=== PATIENT | male | born 1935 | race Caucasian/White ===

== ENCOUNTER 2017-10-28 17:42 | Observation (INO) ==
--- NOTE | 2017-10-28 18:45 | ED ---
HPI General Chief Complaint: Chest Pain Stated Complaint: chest pain Time Seen by Provider: 10/28/17 18:28 Source: patient Mode of arrival: ambulatory Limitations: no limitations History of Present Illness HPI narrative: 82-year-old male complains of chest pain. Patient states that he has sharp stabbing pain started on the right anterior chest with radiation to the right shoulder. Patient states that the pain started about 630 last night. Patient took aspirin 81 mg 6 pills last night. Patient took aspirin 81 mg 4 tablets today prior to arrival. Patient states that the pain is worse with right arm movement. Patient denies any shortness of breath. Patient denies any palpitation or tachycardia. Patient has history ID in 2000 2001. Patient status post stent placement to the stents in 2000 and 1 standing thousand 2. Patient is on aspirin 81 mg at home. Patient also has history of diabetes and hyperlipidemia. Patient is a non-smoker. On a scale of 1-10 the pain is a 7. Patient denies any coughing congestion fever chills. Patient denies any injury to the right side the chest or the shoulder. MD complaint: chest pain Complete Quality Measures for STEMI Alert Patients STEMI Alert: No Onset (ago): hour(s) Duration: constant Onset: during rest Pain location: right chest Severity: moderate Severity scale (1-10): 7 Quality: sharp Pain radiation: RUE Relieving factors: nothing and remaining still Exacerbating factors: movement Treatments prior to arrival chest pain: aspirin Related Data Home Medications Medication Instructions Recorded Confirmed atorvastatin [Lipitor] 10 mg PO DAILY 10/28/17 10/28/17 metformin [Glucophage] 1,000 mg PO BID 10/28/17 10/28/17 Allergies Allergy/AdvReac Type Severity Reaction Status Date / Time No Known Allergies Allergy Unverified 10/28/17 18:46 Review of Systems Except as stated in HPI: all other systems reviewed are negative PMFSH History History Provided By: Patient Medical History Medical History Diabetes (Acute) High cholesterol (Acute) Surgical History Surgical History History of heart artery stent (Acute) Social History Social History Smoking Status: Never smoker How Often Do You Have a Drink Containing Alcohol: 2 to 4 times a month Recent Travel in [facility] within the Last 8 Weeks: No Recent Out of Country Travel within the Last 8 Weeks: No Exam Narrative Exam Narrative: GENERAL: Well-nourished, well-developed patient. SKIN: Focused skin assessment warm/dry. HEAD: Normocephalic. EYES: No scleral icterus. No injection or drainage. NECK: Supple, trachea midline. No JVD or lymphadenopathy. CARDIOVASCULAR: Regular rate and rhythm without murmurs, gallops, or rubs. RESPIRATORY: Breath sounds equal bilaterally. No accessory muscle use. GASTROINTESTINAL: Abdomen soft, non-tender, nondistended. MUSCULOSKELETAL: No cyanosis, or edema. BACK: Nontender without obvious deformity. No CVA tenderness. Neurologic exam normal. Course Initial Documented Vital Signs Temperature 98.4 F 10/28/17 17:53 Pulse Rate 75 10/28/17 17:53 Respiratory Rate 18 10/28/17 17:53 Blood Pressure 159/70 H 10/28/17 17:53 Pulse Oximetry 99 10/28/17 17:53 Last Documented Vital Signs Temperature 97.8 F 10/28/17 18:20 Pulse Rate 50 L 10/28/17 18:20 Respiratory Rate 18 10/28/17 18:20 Blood Pressure 190/96 H 10/28/17 18:20 Pulse Oximetry 99 10/28/17 18:49 Sign Out Sign Out Data: Patient Sign Out occurred on 10/28/17 at 19:38. Patient's care was discussed, and care was transferred from Kehinde Stevenson to Karmen Baumann MD. Sign Out Comment: Check EKG x-ray blood test. Last updated by Kehinde Stevenson MD at 10/28/17 19:15 Medical Decision Making MDM Narrative Medical decision making narrative: 82-year-old male with right-sided chest pain. @ 7:40 accepted in transfer of care Follow-up of complaint of chest pain EKG shows no acute ST elevation or injury pattern white count is in normal range mild anemia renal function is grossly within normal limits cardiac enzymes are pending chest x-ray reported as mild right base atelectasis with d-dimer of 0.92 mildly elevated --pulmonary CT pending In 19:20 CT pulmonary angiogram is negative for PE; troponin I is less than 0.02 ; CK total is elevated at 446 with an MB of 13 however MB percent is 2.9% not elevated; patient is pain-free; patient is aware of lab results and recommendation for observation admission to chest pain center per protocol and is agreeable with this plan. Differential Diagnosis Differential Diagnosis: Differential diagnosis including musculoskeletal, PE, pneumothorax, angina, ID. Medical Records Medical records reviewed: Yes I reviewed the patient's medical records. Lab Data Lab results reviewed: Yes I reviewed the patient's lab results. Result diagrams: 10/28/17 18:30 10/28/17 18:30 Lab Results 10/28/17 10/28/17 10/28/17 Range/Units 18:30 18:30 18:30 WBC 6.2 (4.0-11.0) th/mm3 RBC 3.62 L (4.50-5.90) mil/mm3 Hgb 11.2 L (13.0-17.0) gm/dL Hct 32.3 L (39.0-51.0) % MCV 89.2 (80.0-100.0) fL MCH 30.8 (27.0-34.0) pg MCHC 34.6 (32.0-36.0) % RDW 13.1 (11.6-17.2) % Plt Count 211 (150-450) th/mm3 MPV 7.3 (7.0-11.0) fL Neut % (Auto) 62.2 (16.0-70.0) % Lymph % (Auto) 25.2 (9.0-44.0) % [place] % (Auto) 10.1 H (0.0-8.0) % Eos % (Auto) 1.8 (0.0-4.0) % Baso % (Auto) 0.7 (0.0-2.0) % Neut # (Auto) 3.8 (1.8-7.7) th/mm3 Lymph # (Auto) 1.6 (1.0-4.8) th/mm3 [place] # (Auto) 0.6 (0.0-0.9) th/mm3 Eos # (Auto) 0.1 (0.0-0.4) th/mm3 Baso # (Auto) 0.0 (0.0-0.2) th/mm3 WBC Differential . Differential Comment Auto diff final PT 11.5 (9.8-11.6) sec INR 1.1 Ratio APTT 23.6 L (24.3-30.1) sec D-Dimer Quant (PE/DVT) 0.92 H (0.00-0.50) mg/L FEU Sodium 131 L (136-145) meq/L Potassium 4.3 (3.5-5.1) meq/L Chloride 96 L (98-107) meq/L Carbon Dioxide 24.7 (21.0-32.0) meq/L Anion Gap 10 (5-15) meq/L BUN 14 (7-18) mg/dL Creatinine 1.14 (0.60-1.30) mg/dL Estimated GFR 61 L (>89) mL/min Random Glucose 96 (74-106) mg/dL Calcium 9.2 (8.5-10.1) mg/dL Magnesium 1.9 (1.5-2.5) mg/dL Total Bilirubin 1.4 H (0.2-1.0) mg/dL AST 25 (15-37) U/L ALT 27 (12-78) U/L Alkaline Phosphatase 86 (45-117) U/L Total Creatine Kinase 446 H (39-308) U/L CK-MB (CK-2) 13.0 H (0.5-3.6) ng/mL CK-MB (CK-2) % 2.9 (0.0-4.0) % Troponin I Less than 0.02 L (0.02-0.05) ng/mL B-Natriuretic Peptide (0-100) pg/mL Total Protein 7.1 (6.4-8.2) g/dL Albumin 3.6 (3.4-5.0) g/dL 10/28/17 Range/Units 18:30 WBC (4.0-11.0) th/mm3 RBC (4.50-5.90) mil/mm3 Hgb (13.0-17.0) gm/dL Hct (39.0-51.0) % MCV (80.0-100.0) fL MCH (27.0-34.0) pg MCHC (32.0-36.0) % RDW (11.6-17.2) % Plt Count (150-450) th/mm3 MPV (7.0-11.0) fL Neut % (Auto) (16.0-70.0) % Lymph % (Auto) (9.0-44.0) % [place] % (Auto) (0.0-8.0) % Eos % (Auto) (0.0-4.0) % Baso % (Auto) (0.0-2.0) % Neut # (Auto) (1.8-7.7) th/mm3 Lymph # (Auto) (1.0-4.8) th/mm3 [place] # (Auto) (0.0-0.9) th/mm3 Eos # (Auto) (0.0-0.4) th/mm3 Baso # (Auto) (0.0-0.2) th/mm3 WBC Differential Differential Comment PT (9.8-11.6) sec INR Ratio APTT (24.3-30.1) sec D-Dimer Quant (PE/DVT) (0.00-0.50) mg/L FEU Sodium (136-145) meq/L Potassium (3.5-5.1) meq/L Chloride (98-107) meq/L Carbon Dioxide (21.0-32.0) meq/L Anion Gap (5-15) meq/L BUN (7-18) mg/dL Creatinine (0.60-1.30) mg/dL Estimated GFR (>89) mL/min Random Glucose (74-106) mg/dL Calcium (8.5-10.1) mg/dL Magnesium (1.5-2.5) mg/dL Total Bilirubin (0.2-1.0) mg/dL AST (15-37) U/L ALT (12-78) U/L Alkaline Phosphatase (45-117) U/L Total Creatine Kinase (39-308) U/L CK-MB (CK-2) (0.5-3.6) ng/mL CK-MB (CK-2) % (0.0-4.0) % Troponin I (0.02-0.05) ng/mL B-Natriuretic Peptide 185 H (0-100) pg/mL Total Protein (6.4-8.2) g/dL Albumin (3.4-5.0) g/dL Imaging Data Radiologist's impression: ITS Impressions Chest X-Ray 10/28/17 18:28 CONCLUSION: Mild right base atelectasis. Chest CTA 10/28/17 18:37 CONCLUSION: 1. No pulmonary embolus or other acute cardiopulmonary disease demonstrated. 2. Left ventricular enlargement. 3. Coronary artery calcification. ECG Data Interpretation: Sinus bradycardia rate 55 with first-degree AV block and sinus arrhythmia no acute ST elevation or injury pattern change noted Discharge Plan Discharge Disposition Patient Disposition: 30 Still Patient Discharge Condition Condition: Stable Discharge Details Diagnosis: Chest pain Physicians Team ED Provider: Karmen Baumann Primary Care Provider: Fili Mora Rxs /Orders / Referrals /Forms Prescriptions: No Action atorvastatin [Lipitor] 10 mg Tablet 10 mg PO DAILY RF: 0 metformin [Glucophage] 1,000 mg Tablet 1,000 mg PO BID RF: 0 Discharge Instructions Patient Printed Instructions: Chest Pain (ED) Status ED Status: With Doctor
[2017-10-28 19:03] LABS: Baso % (Auto) 0.7 % (0.0-2.0); Eos # (Auto) 0.1 th/mm3 (0.0-0.4); Eos % (Auto) 1.8 % (0.0-4.0); Hematocrit 32.3 % (39.0-51.0); Hemoglobin 11.2 gm/dL (13.0-17.0); Lymph # (Auto) 1.6 th/mm3 (1.0-4.8); Lymph % (Auto) 25.2 % (9.0-44.0); Mean Corpuscular HGB Conc 34.6 % (32.0-36.0); Mean Corpuscular Hemoglobin 30.8 pg (27.0-34.0); Mean Corpuscular Volume 89.2 fL (80.0-100.0); Mean Platelet Volume 7.3 fL (7.0-11.0); Mono # (Auto) 0.6 th/mm3 (0.0-0.9); Mono % (Auto) 10.1 % (0.0-8.0); Neut # (Auto) 3.8 th/mm3 (1.8-7.7); Neut % (Auto) 62.2 % (16.0-70.0); Platelet Count 211 th/mm3 (150-450); Red Blood Count 3.62 mil/mm3 (4.50-5.90); Red Cell Distribution Width 13.1 % (11.6-17.2); White Blood Count 6.2 th/mm3 (4.0-11.0)
[2017-10-28 19:11] LABS: Albumin 3.6 g/dL (3.4-5.0); Anion Gap 10 meq/L (5-15); Aspartate Aminotransferase 25 U/L (15-37); Blood Urea Nitrogen 14 mg/dL (7-18); Calcium 9.2 mg/dL (8.5-10.1); Carbon Dioxide 24.7 meq/L (21.0-32.0); Chloride 96 meq/L (98-107); Glomerular Filtration Rate 61 mL/min (>89); Glucose,Random 96 mg/dL (74-106); Magnesium 1.9 mg/dL (1.5-2.5); Potassium 4.3 meq/L (3.5-5.1); Sodium 131 meq/L (136-145)
[2017-10-28 19:12] LABS: Alanine Aminotransferase 27 U/L (12-78)
[2017-10-28 19:15] LABS: Activated Partial Thrombo Time 23.6 sec (24.3-30.1); INR 1.1 Ratio; Prothrombin Time 11.5 sec (9.8-11.6)
[2017-10-28 19:16] LABS: Alkaline Phosphatase 86 U/L (45-117); Creatine Kinase 446 U/L (39-308); Total Protein 7.1 g/dL (6.4-8.2)
[2017-10-28 19:18] LABS: D-Dimer 0.92 mg/L FEU (0.00-0.50)
--- NOTE | 2017-10-28 19:26 | XR ---
EXAM DATE: 10/28/2017 7:07 PM EDT AGE/SEX: 82 years / Male INDICATIONS: Chest pain. CLINICAL DATA: This is the patient's initial encounter. Patient reports that signs and symptoms have been present for 3 days and indicates a pain score of 9/10. MEDICAL/SURGICAL HISTORY: Diabetes mellitus type II. Hypercholesterolemia. Coronary artery beatrice nt. COMPARISON: POI, XR CHEST PA AND LAT, 08/22/2014. . FINDINGS: There is trace atelectasis at the right base. No pleural effusion seen. No pneumothorax. Heart size stable, within normal limits. CONCLUSION: Mild right base atelectasis. Electronically signed by: Waqar Owen MD 10/28/2017 7:25 PM EDT
[2017-10-28 19:28] LABS: CKMB Percent 2.9 % (0.0-4.0)
--- NOTE | 2017-10-28 20:08 | CT ---
EXAM DATE: 10/28/2017 7:52 PM EDT AGE/SEX: 82 years / Male INDICATIONS: Chest pain since last night. Right arm pain that radiates to chest. CLINICAL DATA: This is the patient's initial encounter. Patient reports that signs and symptoms have been present for 2 days and indicates a pain score of 6/10. MEDICAL/SURGICAL HISTORY: Diabetes. Hypercholesterolemia. None. RADIATION DOSE: 17.89 CTDI (mGy) COMPARISON: No prior exams available for comparison. TECHNIQUE: Volumetric scanning was performed using a multi-row detector CT scanner during bolus infu juan r of 50 ml Omnipaque 350 (iohexol) nonionic water-soluble contrast as a single exam dose. The scarlet a was post processed with a variety of visualization algorithms including full volume maximum intensi ty projection and sliding thin slab reformation. Using automated exposure control and adjustment of the mA and/or kV according to patient size, radiation dose was kept as low as reasonably achievable t o obtain optimal diagnostic quality images. DICOM format image data is available electronically for review and comparison. FINDINGS: Pulmonary Arteries: No filling defects are seen in the pulmonary arteries out to the subsegmental ve ssels. The left and right pulmonary arteries are normal in diameter. Lung: No infiltrates seen. Effusion: None. Mediastinum: No evidence of mediastinal or hilar adenopathy. There is mild left ventricular enlargem ent. Coronary artery calcification present. There is atherosclerosis of the thoracic aorta. Other: The axillae are unremarkable. CONCLUSION: 1. No pulmonary embolus or other acute cardiopulmonary disease demonstrated. 2. Left ventricular enlargement. 3. Coronary artery calcification. Electronically signed by: Waqar Owen MD 10/28/2017 8:07 PM EDT
[2017-10-28] MEDS ORDERED: Acetaminophen 500 MG Tablet PO PRN (21:16)
--- NOTE | 2017-10-28 21:16 | ECG ---
Date Performed: 10/28/2017 Time Performed: 18:12:40 PTAGE: 82 years EKG: ATRIAL FIBRILLATION WITH SLOW VENTRICULAR RESPONSE ABNORMAL RHYTHM ECG Compared to prior EK G rate has increased. I cannot accurately compare rhythm due to prior baseline artifact. DOCTOR: Narayan Arzola Interpretating Date/Time 10/28/2017 21:15:32
[2017-10-28 23:01] LABS: Creatine Kinase 482 U/L (39-308)
[2017-10-28 23:14] LABS: CKMB Percent 2.7 % (0.0-4.0); Creatine Kinase MB 13.1 ng/mL (0.5-3.6)
[2017-10-29 01:25] LABS: Creatine Kinase 405 U/L (39-308)
[2017-10-29 01:38] LABS: CKMB Percent 2.6 % (0.0-4.0); Creatine Kinase MB 10.7 ng/mL (0.5-3.6)
--- NOTE | 2017-10-29 08:47 | ECG ---
Date Performed: 10/29/2017 Time Performed: 00:26:50 PTAGE: 82 years EKG: ATRIAL FIBRILLATION WITH SLOW VENTRICULAR RESPONSE ABNORMAL ECG PREVIOUS TRACING : 10/28/2017 18.12 Since previous tracing, no significant change noted DOCTOR: Lewis Aaron Interpretating Date/Time 10/29/2017 08:46:22
--- NOTE | 2017-10-29 08:48 | ECG ---
Date Performed: 10/28/2017 Time Performed: 22:39:30 PTAGE: 82 years EKG: ATRIAL FIBRILLATION WITH SLOW VENTRICULAR RESPONSE ABNORMAL RHYTHM ECG NO PREVIOUS TRACING DOCTOR: Lewis Aaron Interpretating Date/Time 10/29/2017 08:46:36
[2017-10-29] MEDS: Aspirin 325 MG Tablet PO SCH (08:55)
--- NOTE | 2017-10-29 09:20 | P.HPCA ---
History of Present Illness Primary Care Physician: Fili Mora MD Chief Complaint: Chest pain History of Present Illness: This is a 82-year-old male with history of CAD with stents, hyperlipidemia, diabetes that presents to ED with complaint of right-sided sharp chest discomfort that has been intermittent for the last 2 days. Seems he brought on by movement. More so he moves his right arm the discomfort will recur. Describes it as severe. Denied associated shortness of breath, nausea, or diaphoresis. States the discomfort is not similar to when eating stenting in the past which after reviewing records that was in 2003. 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 Denies ever being told he has atrial fibrillation. Denies episodes of feeling dizzy or weak and denies episodes of passing out or nearly passing out. Patient is lifetime non-smoker. There is family history of CAD. Patient has had cardiac catheterizations with stenting, most recently cardiac catheterization in 2003 with a stent to the LAD. - Diagnosis (1) Chest pain (2) CAD (coronary artery disease) (3) History of heart artery stent (4) Hyperlipidemia (5) Diabetes Inpatient Certification: I certify that the inpatient services were ordered in accordance with Medicare regulations governing the order. This includes certification that hospital inpatient services are reasonable and necessary and in the case of services not specified as inpatient-only under 42 CFR 419.22(n), that they are appropriately provided as inpatient services in accordance to with the 2-midnight benchmark under 43 CFR 412.3(e) Review of Systems General: Patient denies fevers, chills, and recent travel. HEENT: Patient denies headache, sore throat, difficulty swallowing. Cardiovascular: Has the chest discomfort as mentioned above. Denies sensation of heart beating rapidly or irregularly. No syncope. Respiratory: Denies shortness of breath or inspirational chest discomfort. Denies coughing wheezing or hemoptysis. GI: Patient denies nausea, vomiting, diarrhea, abdominal pain, bloody stools. Musculoskeletal: Patient denies joint pain or edema. Denies calf pain or edema. Neurovascular: Patient denies numbness, tingling, weakness in extremities. Denies headache. Endocrine: Denies polyuria and polydipsia. Hematologic: Denies easy bruising. Skin: Denies rash or itching. PMFSH - History History Provided By: Patient - Medical History Medical History: Medical History (Last Reviewed 10/29/17 @ 09:02 by YVETTE Iqbal) Diabetes (Acute) High cholesterol (Acute) - Surgical History Surgical History: Surgical History (Last Updated 10/29/17 @ 09:01 by YVETTE Iqbal) History of heart artery stent (Acute) - Tobacco History Second Hand Smoke Exposure: No Smoking Status: Never smoker - Alcohol History How Often Do You Have a Drink Containing Alcohol: 2 to 4 times a month - Substance Use History Substance History: No History of Abuse - Travel History Recent Travel in the [place] Within the Last 8 Weeks: No Recent Travel Out of the Country Within the Last 8 Weeks: No - Immunization History Tetanus Immunization: >5 Years Hx Influenza Vaccine This Season: Yes Medications and Allergies Active Medications: Active Medications Acetaminophen (Tylenol) 500 mg PO Q4H PRN PRN Reason: HEADACHE Aspirin (Aspirin) 325 mg PO DAILY [facility] Last Admin: 10/29/17 08:55 Dose: 325 mg Atorvastatin Calcium (Lipitor) 10 mg PO DAILY [facility] Insulin Human Regular (Novolin R Supplemental Scale) 0 units SQ ACHS [facility]; Protocol Nitroglycerin (Nitrostat Sl) 0.4 mg SL Q5M PRN PRN Reason: CHEST PAIN Sodium Chloride (Ns Flush) 2 ml IV.FLUSH UNSCH PRN PRN Reason: FLUSH AFTER USING IV ACCESS Sodium Chloride (Ns Flush) 2 ml IV.FLUSH UNSCH PRN PRN Reason: FLUSH AFTER USING IV ACCESS Sodium Chloride (Ns Flush) 2 ml IV.FLUSH BID [facility] Last Admin: 10/29/17 08:55 Dose: 2 ml Sodium Chloride (Ns Flush) 2 ml IV.FLUSH PRN PRN PRN Reason: FLUSH AFTER USING IV ACCESS Allergies Allergy/AdvReac Type Severity Reaction Status Date / Time No Known Allergies Allergy Unverified 10/28/17 18:46 Home Medications Medication Instructions Recorded Confirmed Type atorvastatin [Lipitor] 10 mg PO DAILY 10/28/17 10/28/17 History metformin [Glucophage] 1,000 mg PO BID 10/28/17 10/28/17 History Exam Vital signs: Vital Signs 10/28/17 17:53 10/28/17 18:20 10/28/17 18:49 Temperature 98.4 F 97.8 F Pulse Rate 75 50 L Respiratory Rate 18 18 Blood Pressure 159/70 H 190/96 H Pulse Oximetry 99 99 99 10/28/17 21:23 10/29/17 00:00 10/29/17 00:05 Temperature 97.6 F 97.5 F L Pulse Rate 47 L 83 Respiratory Rate 16 17 Blood Pressure 165/82 H 195/86 H 180/81 H Pulse Oximetry 100 96 10/29/17 00:49 10/29/17 01:02 10/29/17 01:05 Temperature Pulse Rate 63 52 L 44 L Respiratory Rate Blood Pressure Pulse Oximetry 10/29/17 02:09 10/29/17 03:14 10/29/17 04:00 Temperature 97.7 F Pulse Rate 36 L 35 L Respiratory Rate 18 Blood Pressure 179/82 H 161/70 H Pulse Oximetry 100 10/29/17 07:30 Temperature 97.5 F L Pulse Rate 45 L Respiratory Rate 12 Blood Pressure 186/83 H Pulse Oximetry 98 Intake & Output 10/28/17 10/29/17 10/29/17 18:59 06:59 18:59 Intake Total 480 / 480 Balance 480 / 480 Weight 74.843 kg Intake: Oral 480 / 480 Other: # Voids 3 Date of Last Bowel Movement 10/27/17 Narrative: GENERAL: This is a well-nourished, well-developed patient, in no apparent distress. Patient speaks in clear complete sentences. Patient is pleasant. HEENT: Head is atraumatic and normocephalic. Neck is supple without lymphadenopathy and trachea is midline. No JVD or carotid bruits. CARDIOVASCULAR: Irregularly irregular rate and rhythm with rate in the 40s without murmurs, gallops, or rubs. RESPIRATORY: Clear to auscultation. Breath sounds equal bilaterally. No wheezes , rales, or rhonchi. Chest wall is nontender. No use of accessory muscles. GASTROINTESTINAL: Abdomen is nontender, nondistended. Abdomen soft. No obvious pulsatile mass or bruit. No CVA tenderness. Strong femoral pulses bilaterally. Normal bowel sounds in all quadrants. MUSCULOSKELETAL: Patient is moving upper and lower extremities freely. No calf tenderness or edema, no Homans sign. Strong pulses in upper and lower extremities. NEUROLOGICAL: Patient is alert and oriented. Cranial nerves 2-12 are grossly intact. No focal deficits and speech is clear. SKIN: No rash and turgor is normal. Results 10/28/17 18:30 10/28/17 18:30 Cardiac Enzymes 10/28/17 10/28/17 10/28/17 Range/Units 18:30 18:30 18:30 AST 25 (15-37) U/L CK-MB (CK-2) 13.0 H (0.5-3.6) ng/mL Troponin I Less than 0.02 L (0.02-0.05) ng/mL B-Natriuretic Peptide 185 H Cancelled (0-100) pg/mL 10/28/17 10/29/17 Range/Units 22:05 00:50 AST (15-37) U/L CK-MB (CK-2) 13.1 H 10.7 H (0.5-3.6) ng/mL Troponin I Less than 0.02 L Less than 0.02 L (0.02-0.05) ng/mL B-Natriuretic Peptide (0-100) pg/mL Coagulation 10/28/17 10/28/17 10/28/17 Range/Units 18:30 18:30 18:30 PT 11.5 (9.8-11.6) sec APTT 23.6 L (24.3-30.1) sec B-Natriuretic Peptide 185 H Cancelled (0-100) pg/mL CBC 10/28/17 Range/Units 18:30 WBC 6.2 (4.0-11.0) th/mm3 RBC 3.62 L (4.50-5.90) mil/mm3 Hgb 11.2 L (13.0-17.0) gm/dL Hct 32.3 L (39.0-51.0) % Plt Count 211 (150-450) th/mm3 Neut # (Auto) 3.8 (1.8-7.7) th/mm3 Lymph # (Auto) 1.6 (1.0-4.8) th/mm3 [place] # (Auto) 0.6 (0.0-0.9) th/mm3 Eos # (Auto) 0.1 (0.0-0.4) th/mm3 Baso # (Auto) 0.0 (0.0-0.2) th/mm3 Comprehensive Metabolic Panel 07/10/18 Range/Units 18:30 Sodium 131 L (136-145) meq/L Potassium 4.3 (3.5-5.1) meq/L Chloride 96 L (98-107) meq/L Carbon Dioxide 24.7 (21.0-32.0) meq/L BUN 14 (7-18) mg/dL Creatinine 1.14 (0.60-1.30) mg/dL Calcium 9.2 (8.5-10.1) mg/dL AST 25 (15-37) U/L ALT 27 (12-78) U/L Alkaline Phosphatase 86 (45-117) U/L Total Protein 7.1 (6.4-8.2) g/dL Albumin 3.6 (3.4-5.0) g/dL Intake and Output 10/28/17 10/29/17 10/29/17 22:59 06:59 14:59 Intake Total 480 / 480 Balance 480 / 480 Intake: Oral 480 / 480 Other: # Voids 3 Date of Last Bowel Movement 10/27/17 Weight 74.843 kg EKG interpretations - EKG EKG shows: atrial fibrillation (EKGs have been atrial fibrillation with slow ventricular response. Upon reviewing monitor, patient has had A. fib with slow response with multiple pauses.) Caprini VTE Risk Assessment Caprini VTE Risk Assessment: Moderate/High Risk (score >= 2) Caprini Risk Assessment Model: Point Value = 1 Point Value = 2 Point Value = 3 Point Value = 5 Age 41-60 Minor surgery BMI > 25 kg/m2 Swollen legs Varicose veins or History of unexplained or recurrent spontaneous Oral contraceptives or hormone replacement Sepsis (< 1 month) Serious lung disease, including pneumonia (< 1 month) Abnormal pulmonary function Acute myocardial infarction Congestive heart failure (< 1 month) History of inflammatory bowel disease Medical patient at bed rest Age 61-74 Arthroscopic surgery Major open surgery (> 45 min) Laparoscopic surgery (> 45 min) Malignancy Confined to bed (> 72 hours) Immobilizing plaster cast Central venous access Age >= 75 History of VTE Family history of VTE Factor V Leiden Prothrombin [id number] Lupus anticoagulant Anticardiolipin antibodies Elevated serum homocysteine Heparin-induced thrombocytopenia Other congenital or acquired thrombophilia Stroke (< 1 month) Elective arthroplasty Hip, pelvis, or leg fracture Acute spinal cord injury (< 1 month) Prophylaxis Regimen: Total Risk Factor Score Risk Level Prophylaxis Regimen 0-1 Low Early ambulation 2 Moderate Order ONE of the following: *Sequential Compression Device (SCD) *Heparin 5000 units SQ BID 3-4 Higher Order ONE of the following medications: *Heparin 5000 units SQ TID *Enoxaparin/Lovenox 40 mg SQ daily (WT < 150 kg, CrCl > 30 mL/min) *Enoxaparin/Lovenox 30 mg SQ daily (WT < 150 kg, CrCl > 10-29 mL/min) *Enoxaparin/Lovenox 30 mg SQ BID (WT < 150 kg, CrCl > 30 mL/min) AND/OR *Sequential Compression Device (SCD) 5 or more Highest Order ONE of the following medications: *Heparin 5000 units SQ TID (Preferred with Epidurals) *Enoxaparin/Lovenox 40 mg SQ daily (WT < 150 kg, CrCl > 30 mL/min) *Enoxaparin/Lovenox 30 mg SQ daily (WT < 150 kg, CrCl > 10-29 mL/min) *Enoxaparin/Lovenox 30 mg SQ BID (WT < 150 kg, CrCl > 30 mL/min) AND *Sequential Compression Device (SCD) Assessment and Plan - Assessment (1) Chest pain Code(s): R07.9 - Chest pain, unspecified Status: Acute (2) CAD (coronary artery disease) Code(s): I25.10 - Atherosclerotic heart disease of [place] coronary artery without angina pectoris Status: Acute (3) History of heart artery stent Code(s): Z95.5 - Presence of coronary angioplasty implant and graft Status: Acute (4) Hyperlipidemia Code(s): E78.5 - Hyperlipidemia, unspecified Status: Acute (5) Diabetes Code(s): E11.9 - Type 2 diabetes mellitus without complications Status: Acute - Plan * A. fib with slow ventricular response: Patient has been seen by Dr. Lewis Aaron of cardiology in the chest pain center. He has discussed this patient with Dr. Jones and he will be evaluating the patient for possible pacemaker placement. [facility] * Chest pain: Patient has had serial cardiac enzymes and EKGs were ruling out purposes. Symptoms are atypical. * Hyperlipidemia: Continue medication. * Diabetes: Hold metformin, sliding scale insulin coverage. * History of CAD: Patient will need follow-up with cardiology. Patient is stable at this time. He is agreeable to this plan. H&P: Quality - VTE Deep Vein Thrombosis/Pulmonary Embolism Present on Admission: No (1) Chest pain Qualifiers: Chest pain type: unspecified Qualified Code(s): R07.9 - Chest pain, unspecified
[2017-10-29] MEDS ORDERED: Ketorolac Inj 30 MG/ML (IVP) Vial IV.PUSH ONE (10:30)
[2017-10-29] MEDS: Insulin NovoLIN Regular Correctional Sugar Inj SQ SCH ×3 (12:04→22:43)
--- NOTE | 2017-10-30 08:15 | P.PN ---
Subjective Interval history: Follow up for bradycardia, Afib with SVR. The patient reports feeling well today ; denies any lightheadedness, dizziness, chest pain, palpitations, or shortness of breath. He complains of arthritic pains in his hands and shoulder, worse on the right side. He has discussed pacer options with Dr. Jones and has now decided that he wants to go home to think about it. Physical Exam Vital signs: Vital Signs 10/29/17 12:00 10/29/17 12:47 10/29/17 16:00 Temperature 97.6 F 98.1 F Pulse Rate 49 L 44 L 50 L Respiratory Rate 18 16 Blood Pressure 187/87 H 135/70 Pulse Oximetry 98 99 10/29/17 17:06 10/29/17 20:00 10/29/17 23:47 Temperature 97.5 F L 97.9 F Pulse Rate 39 L 77 52 L Respiratory Rate 17 16 Blood Pressure 135/70 146/78 H Pulse Oximetry 97 92 L 10/30/17 00:00 10/30/17 03:50 Temperature 98.3 F Pulse Rate 44 L 40 L Respiratory Rate 15 Blood Pressure 184/81 H Pulse Oximetry 98 Intake & Output 10/29/17 10/30/17 10/30/17 18:59 06:59 18:59 Intake Total 480 / 480 Balance 480 / 480 Intake: Oral 480 / 480 Other: # Voids 8 5 Narrative: GENERAL: Well-nourished, well-developed pleasant elderly male patient in [facility]. SKIN: Warm and dry. No rash. HEENT: Normocephalic. Atraumatic. Pupils equal and round. Mucous membranes pink and moist. CARDIOVASCULAR: Bradycardiac and irregular rhythm. No murmur appreciated. RESPIRATORY: No accessory muscle use. Clear to auscultation. Breath sounds equal bilaterally. GASTROINTESTINAL: Abdomen soft, non-tender, nondistended. Normoactive bowel sounds x4. MUSCULOSKELETAL: No obvious deformities. Extremities without clubbing, cyanosis , or edema. NEUROLOGICAL: Awake and alert. No obvious cranial nerve deficits. Motor grossly within normal limits. Moving all extremities spontaneously. Normal speech. PSYCHIATRIC: Appropriate mood and affect; insight and judgment normal. Results - Labs CBC & Chem 7: 10/30/17 08:40 10/28/17 18:30 Laboratory Results - last 24 hr 07/03/0810/29/17 10/29/17 08:54 12:02 17:28 POC Glucose 102 113 H 118 H 10/29/17 20:34 POC Glucose 188 H Assessment and Plan - Plan 82-year-old male with history of CAD s/p stents, DM, HLD, arthritis, presents with atypical right sided chest/shoulder pain. Atypical Chest Pain: patient initially admitted to [facility] -ACS ruled out with negative serial cardiac enzymes and EKG without acute ischemic changes -D-dimer slightly elevated at 0.92, CT-PA negative for PE -The patient was found to bradycardic with long pauses on telemetry, therefore admitted to hospitalists with cardiology consult -Symptoms resolved, suspect musculoskeletal secondary to arthritis Bradycardia/Pauses/Afib with SVR: patient with HR into the 30s and long pauses on telemetry -Avoid any rate controlling medications -monitor on telemetry, patient still with long pauses and HR in 30s at rest, but does increase to 70s upon ambulation -consulted Dr. Jones for possible pacemaker however patient has declined at this time, discussed with Dr. Jones who cleared the patient for discharge -thoroughly discussed risks of declining pacer at this time including arrhythmia, syncope, stroke, and Hyperlipidemia: chronic -continue patient's statin Diabetes Mellitus: chronic -held patient's metformin -monitor Accu-Checks and cover with SSI DVT Prophylaxis: SCDs; patient is ambulatory Discharge Planning: The patient has been cleared for discharge by cardiology Dr. Jones. Will discharge home. Discharge patient to home Condition on discharge: Stable Heart Healthy diet as tolerated Ad Sherry activity Rx written: none Follow-up with primary care physician and cardiology Dr. Jones
--- NOTE | 2017-10-30 08:44 | MB ---
cc: Tanya Jones MD,Lewis Falk MD DATE: 10/29/2017 REASON FOR CONSULTATION: Severe bradycardia. HISTORY OF PRESENT ILLNESS: Mr. Peters is an 82-year-old gentleman with history of coronary artery disease, high blood pressure, admitted through the emergency room due to pain and shortness of breath. In hospitalization, he was found with severe bradycardia, again in heart rhythm to 20s. He has any of atrial fibrillation. I was consulted by Dr. Lewis Aaron for evaluation and management. The chart was reviewed. The patient was evaluated. ALLERGIES: NONE. SOCIAL HISTORY: Negative for smoking and drinking. FAMILY HISTORY: Noncontributory to his current medical condition. MEDICATIONS: He is on aspirin, he is on atorvastatin, he is on insulin, he is on nitroglycerine p.r.n. REVIEW OF SYSTEMS: He refers feeling fine. No chest pain, no chest discomfort, no fever. PHYSICAL EXAMINATION: GENERAL: Alert, fully oriented. VITAL SIGNS: His blood pressure 125/70, pulse 50, respiratory rate 18. LUNGS: Ventilated. CARDIOVASCULAR: S1, S2, bradycardiac, irregular. ABDOMEN: Soft. No mass. EXTREMITIES: No edema. STUDY: Electrocardiogram, atrial fibrillation, bradycardia. Diffuse ST changes. LABORATORY DATA: Hemoglobin 12.2, white blood cell 6.2. INR 1.1. Potassium 4.3, creatinine is 1.14. ASSESSMENT AND RECOMMENDATIONS: Mr. Peters has severe bradycardia. Heart rate dropped into 30s and 20s, multiple pauses. I had a long conversation with him. I explained to him, he is going to need a permanent pacemaker. The risks, the nature and the benefits of the procedure were discussed extensively with him. Risks include pneumothorax, , stroke and . He explained to me that he is doing fine. He does not need the pacemaker and he was going to go home. I informed the nurse about the decision. I will be available on a p.r.n. basis. Tanya Jones MD /BONNIE , 11:32 PM , 12:04 AM
[2017-10-30] MEDS ORDERED: Lisinopril 10 MG Tablet PO SCH (09:00)
--- NOTE | 2017-10-30 09:17 | P.PN ---
Subjective Interval history: Feeling ok Physical Exam Vital signs: Vital Signs 10/29/17 12:00 10/29/17 12:47 10/29/17 16:00 Temperature 97.6 F 98.1 F Pulse Rate 49 L 44 L 50 L Respiratory Rate 18 16 Blood Pressure 187/87 H 135/70 Pulse Oximetry 98 99 10/29/17 17:06 10/29/17 20:00 10/29/17 23:47 Temperature 97.5 F L 97.9 F Pulse Rate 39 L 77 52 L Respiratory Rate 17 16 Blood Pressure 135/70 146/78 H Pulse Oximetry 97 92 L 10/30/17 00:00 10/30/17 03:50 10/30/17 08:00 Temperature 98.3 F 97.3 F L Pulse Rate 44 L 40 L 52 L Respiratory Rate 15 17 Blood Pressure 184/81 H 134/63 Pulse Oximetry 98 98 Intake & Output 10/29/17 10/30/17 10/30/17 18:59 06:59 18:59 Intake Total 480 / 480 Balance 480 / 480 Intake: Oral 480 / 480 Other: # Voids 8 5 - Constitutional no acute distress - Routine HEENT Exam Head: Present: normocephalic Eye: Present: PERRL ENT: Present: mucous membranes moist - Routine Neck Exam Present: normal carotid upstroke - Routine Cardiovascular Exam Present: bradycardia, irregular rhythm, irregularly irregular - Routine Abdominal Exam Present: soft - Routine Extremities Exam Present: normal capillary refill - Routine Skin Exam Present: intact Results - Labs CBC & Chem 7: 10/28/17 18:30 10/28/17 18:30 Laboratory Results - last 24 hr 10/29/17 10/29/17 10/29/17 08:54 12:02 17:28 POC Glucose 102 113 H 118 H 10/29/17 20:34 POC Glucose 188 H Assessment and Plan - Assessment (1) Bradycardia Code(s): R00.1 - Bradycardia, unspecified Status: Acute Plan: Patient continue to have pauses. HR in the 30s Still wants to think about pacer I was called this morning by the Nurse. Patient refers he wants to go home and when feeling better will scheduled the pacer. (2) Atrial fibrillation Code(s): I48.91 - Unspecified atrial fibrillation Status: Acute Plan: In atrial fibrillation with a slow heart rate
[2017-10-30] MEDS: Aspirin 325 MG Tablet PO SCH (09:41)
[2017-10-30 09:42] LABS: Baso % (Auto) 0.7 % (0.0-2.0); Eos # (Auto) 0.2 th/mm3 (0.0-0.4); Eos % (Auto) 3.7 % (0.0-4.0); Hematocrit 36.8 % (39.0-51.0); Hemoglobin 12.6 gm/dL (13.0-17.0); Lymph # (Auto) 1.4 th/mm3 (1.0-4.8); Lymph % (Auto) 22.3 % (9.0-44.0); Mean Corpuscular HGB Conc 34.1 % (32.0-36.0); Mean Corpuscular Hemoglobin 30.7 pg (27.0-34.0); Mean Corpuscular Volume 89.9 fL (80.0-100.0); Mean Platelet Volume 7.4 fL (7.0-11.0); Mono # (Auto) 0.6 th/mm3 (0.0-0.9); Mono % (Auto) 9.2 % (0.0-8.0); Neut # (Auto) 4.1 th/mm3 (1.8-7.7); Neut % (Auto) 64.1 % (16.0-70.0); Platelet Count 231 th/mm3 (150-450); Red Blood Count 4.09 mil/mm3 (4.50-5.90); Red Cell Distribution Width 12.9 % (11.6-17.2); White Blood Count 6.4 th/mm3 (4.0-11.0)
[2017-10-30] MEDS: Insulin NovoLIN Regular Correctional Sugar Inj SQ SCH (09:44)
[2017-10-30 10:06] LABS: Albumin 3.4 g/dL (3.4-5.0); Anion Gap 12 meq/L (5-15); Aspartate Aminotransferase 26 U/L (15-37); Calcium 9.5 mg/dL (8.5-10.1); Carbon Dioxide 24.2 meq/L (21.0-32.0); Chloride 99 meq/L (98-107); Cholesterol 91 mg/dL (120-200); Glomerular Filtration Rate 54 mL/min (>89); Glucose,Random 90 mg/dL (74-106); Potassium 3.9 meq/L (3.5-5.1); Sodium 135 meq/L (136-145)
[2017-10-30 10:13] LABS: Alanine Aminotransferase 24 U/L (12-78); Alkaline Phosphatase 88 U/L (45-117); Blood Urea Nitrogen 22 mg/dL (7-18); Chol/HDL Ratio 1.62 Ratio; HDL Cholesterol 55.9 mg/dL (40.0-60.0); LDL Cholesterol,Calculated 25 mg/dL (0-99); Triglycerides 50 mg/dL (42-150)
== END 2017-10-30 11:24 | disposition home or self-care (01) ==
LOC: NEPGCP 17:42 → NEPC 17:42 → NEDA 17:42 → NEPGCP 23:09
PROVIDERS: ADMIT Family Medicine; ATTEND Family Medicine